=== PATIENT | male | born 1985 | race Caucasian/White ===

== ENCOUNTER 2016-12-10 15:41 | Emergency (ER) | payer SELFPAY ==
[2016-12-10 15:50] VITALS: BP 116/70; PULSE 102; RESP 18; TEMP 98.7; O2SAT 95; BMI 19.3
--- NOTE | 2016-12-10 16:30 | C.PDOC ---
History Of Present Illness 31 y/o male, with history of alcohol and heroin abuse, presents to ED requesting detox from heroin and alcohol. Otherwise, denies any SI, HI, chest pain, shortness of breath, headache, fever, chills, cough, n/v/d, abdominal pain , dizziness, or any other physical complaints at this time. Time Seen by Provider: 12/10/16 16:21 Chief Complaint (Nursing): Substance Abuse History Per: Patient History/Exam Limitations: intoxication Current Symptoms Are (Timing): Still Present Modifying Factor(s): Alcohol Severity: None Pain Scale Rating Of: 0 Associated Symptoms: denies: Suicidal Thoughts, Suicidal Plan Involuntary Hold By: None Recent travel outside of the [place]: No Additional History Per: Patient Past Medical History Reviewed: Historical Data, Nursing Documentation, Vital Signs Vital Signs: Last Vital Signs Temp 98.7 F 12/10/16 15:49 Pulse 102 H 12/10/16 15:49 Resp 18 12/10/16 15:49 BP 116/70 12/10/16 15:49 Pulse Ox 95 12/10/16 20:22 Family History: States: Unknown Family Hx - Social History Hx Tobacco Use: Yes Hx Alcohol Use: Yes Hx Substance Use: Yes - Immunization History Hx Tetanus Toxoid Vaccination: No Hx Influenza Vaccination: No Hx Pneumococcal Vaccination: No Review Of Systems Except As Marked, All Systems Reviewed And Found Negative. Constitutional: Negative for: Fever, Chills Cardiovascular: Negative for: Chest Pain, Palpitations Respiratory: Negative for: Cough, Shortness of Breath Gastrointestinal: Negative for: Nausea, Vomiting, Abdominal Pain, Diarrhea Genitourinary: Negative for: Dysuria, Frequency, Hematuria Musculoskeletal: Negative for: Neck Pain, Back Pain Neurological: Negative for: Headache, Dizziness Psych: Negative for: Suicidal ideation Physical Exam - Physical Exam Appears: Non-toxic, No Acute Distress, Other (calm, cooperative) Skin: Normal Color, Warm, Dry Head: Atraumatic, Normacephalic Eye(s): bilateral: Normal Inspection Oral Mucosa: Moist Neck: Normal ROM, Supple Cardiovascular: Rhythm Regular, No Murmur Respiratory: Normal Breath Sounds, No Rales, No Rhonchi, No Wheezing Gastrointestinal/Abdominal: Soft, No Tenderness Extremity: Bilateral: Atraumatic, Normal ROM Neurological/Psych: Oriented x3, Normal Speech, Normal Cognition ED Course And Treatment O2 Sat by Pulse Oximetry: 95 Pulse Ox Interpretation: Normal Medical Decision Making Medical Decision Making: peristent alcohol/heroine abuse NOT suicididal- told to say so by a "friend" to get admitted. No SI/HI evaled by Crisis, will f/u as opt for detox availability. Disposition Doctor Will See Patient In The: Office Counseled Patient/Family Regarding: Studies Performed, Diagnosis - Disposition Referrals: [facility] [Outside] [facility] [Outside] [facility] [Outside] Disposition: HOME/ ROUTINE Disposition Time: 16:30 Condition: GOOD Additional Instructions: please follow-up for availability for detox. Instructions: Narcotic Abuse (ED), Abuse of Alcohol (ED) Forms: [email or web address] (French) - Clinical Impression Clinical Impression: Heroin abuse, Alcohol abuse - Scribe Statement The provider has reviewed the documentation as recorded by the Scribe Barbara Jordan All medical record entries made by the Scribe were at my direction and personally dictated by me. I have reviewed the chart and agree that the record accurately reflects my personal performance of the history, physical exam, medical decision making, and the department course for this patient. I have also personally directed, reviewed, and agree with the discharge instructions and disposition.
== END 2016-12-10 16:44 | disposition home or self-care (01) ==
LOC: C.ER 15:41
DX: F11.10 Opioid abuse, uncomplicated (principal); F10.10 Alcohol abuse, uncomplicated; Y90.9 Presence of alcohol in blood, level not specified